=== PATIENT | male | born 1950 | race Caucasian/White ===

== ENCOUNTER 2025-04-14 11:14 | Outpatient (CLI) | payer MEDICARE, OTHER, SELFPAY | END 2025-04-14 11:15 | disposition home or self-care (01) | LOC: SPT 11:15 | PROVIDERS: PCP Family Medicine; Visit Provider Podiatrist Foot & Ankle Surgery | DX: Z46.89 Encounter for fitting and adjustment of other specified devices (principal); E08.621 Diabetes mellitus due to underlying condition with foot ulcer; L97.502 Non-pressure chronic ulcer of other part of unspecified foot with fat layer exposed | CPT/HCPCS: 97760; L4361 ==

== ENCOUNTER → 2025-04-28 09:31 | Outpatient (BNVA) | payer MEDICARE, OTHER, SELFPAY | PROVIDERS: PCP Family Medicine; Visit Provider Podiatrist Foot & Ankle Surgery | DX: E11.8 Type 2 diabetes mellitus with unspecified complications (principal); E11.621 Type 2 diabetes mellitus with foot ulcer; L97.512 Non-pressure chronic ulcer of other part of right foot with fat layer exposed; E11.40 Type 2 diabetes mellitus with diabetic neuropathy, unspecified; Z79.84 Long term (current) use of oral hypoglycemic drugs | CPT/HCPCS: 11042 ==

== ENCOUNTER → 2025-05-12 10:04 | Outpatient (BNVA) | payer MEDICARE, OTHER, SELFPAY | PROVIDERS: PCP Family Medicine; Visit Provider Podiatrist Foot & Ankle Surgery | DX: E11.8 Type 2 diabetes mellitus with unspecified complications (principal); E11.621 Type 2 diabetes mellitus with foot ulcer; L97.512 Non-pressure chronic ulcer of other part of right foot with fat layer exposed; E11.40 Type 2 diabetes mellitus with diabetic neuropathy, unspecified; Z79.84 Long term (current) use of oral hypoglycemic drugs | CPT/HCPCS: 99213 ==

== ENCOUNTER → 2025-06-02 09:24 | Outpatient (BNVA) | payer MEDICARE, OTHER, SELFPAY | PROVIDERS: PCP Family Medicine; Visit Provider Podiatrist Foot & Ankle Surgery | DX: E11.621 Type 2 diabetes mellitus with foot ulcer (principal); L97.512 Non-pressure chronic ulcer of other part of right foot with fat layer exposed; E11.40 Type 2 diabetes mellitus with diabetic neuropathy, unspecified; M21.621 Bunionette of right foot; Z79.84 Long term (current) use of oral hypoglycemic drugs | CPT/HCPCS: 99214 ==

== ENCOUNTER → 2025-06-16 08:08 | Outpatient (BNVA) | payer MEDICARE, OTHER, SELFPAY | PROVIDERS: PCP Family Medicine; Visit Provider Podiatrist Foot & Ankle Surgery | DX: E11.8 Type 2 diabetes mellitus with unspecified complications (principal); E11.621 Type 2 diabetes mellitus with foot ulcer; L97.512 Non-pressure chronic ulcer of other part of right foot with fat layer exposed; E11.40 Type 2 diabetes mellitus with diabetic neuropathy, unspecified; M21.621 Bunionette of right foot; Z79.84 Long term (current) use of oral hypoglycemic drugs | CPT/HCPCS: 99214 ==

== ENCOUNTER → 2025-07-08 09:06 | Outpatient (BNVA) | payer MEDICARE, OTHER, SELFPAY | PROVIDERS: PCP Family Medicine; Visit Provider Podiatrist Foot & Ankle Surgery | DX: E11.8 Type 2 diabetes mellitus with unspecified complications (principal); E11.621 Type 2 diabetes mellitus with foot ulcer; L97.512 Non-pressure chronic ulcer of other part of right foot with fat layer exposed; E11.40 Type 2 diabetes mellitus with diabetic neuropathy, unspecified; M21.621 Bunionette of right foot; Z79.84 Long term (current) use of oral hypoglycemic drugs | CPT/HCPCS: 99214 ==

== ENCOUNTER 2025-07-19 06:09 | Day surgery (SDC) | payer MEDICARE, OTHER, SELFPAY ==
[2025-07-19] VITALS (8 sets, daily range): BP systolic 137–179; BP diastolic 79–104; PULSE 72–78; RESP 15–18; TEMP 36.2–36.6; O2SAT 96–100; BMI 35.9
--- NOTE | 2025-07-19 06:38 | ECG_ITS ---
[facility]: 2025-07-19 Pat Name: Jeancarlos Berry Department: Room: Gender: Male Bankruptcy Law Specialist: : 1950 Requested By: Aj Martin Order Number: [id number] Miko MD: Cierra Gonzalez M.D. Measurements Intervals [place] Rate: 69 P: 28 VA: 208 QRS: -36 QRSD: 160 T: 5 QT: 424 QTc: 457 Interpretive Statements SINUS RHYTHM LEFT AXIS DEVIATION [QRS AXIS < -30] RIGHT BUNDLE BRANCH BLOCK [120+ ms QRS DURATION, UPRIGHT V1, 40+ ms S IN I/aVL/V4/V5/V6] No previous ECG available for comparison Electronically Signed On 07-20-2025 21:55:23 [employer]OCK CAR [employer] by Cierra Gonzalez M.D. [email or web address]
[2025-07-19 07:01] LABS: Hematocrit 47.0 % (37-53); Hemoglobin 15.80 g/dL (11.27-16.99); Mean Corpuscular HGB Conc 33.6 g/dL (30-55); Mean Corpuscular Hemoglobin 29.8 pg (27-33); Mean Corpuscular Volume 88.7 fl (82-101); Nucleated Red Blood Cells % 0 %; Platelet Count 156 10^3/cmm (157-399); Red Blood Count 5.30 10^6/uL (3.85-5.65); White Blood Count 5.87 10^3/uL (3.29-11.43)
[2025-07-19 07:21] LABS: Anion Gap 13.7 (5-19); Blood Urea Nitrogen 18 mg/dL (8-23); Calcium 9.5 mg/dL (8.5-10.5); Carbon Dioxide 28 mmol/L (22-29); Chloride 101 mmol/L (98-107); Glucose 210 mg/dL (65-115); Osmolality Calculated 294 mOsm/kg (285-295); Potassium 4.7 mmol/L (3.5-5.1); Sodium 138 mmol/L (136-145)
--- NOTE | 2025-07-19 07:59 | ANES.PREANE2 ---
Pre-Anesthetic Assessment Height/Weight: Height 6 ft Weight 265 lb Temp Pulse Resp BP Pulse Ox O2 Del Method 97.2 F L 77 17 179/104 100 Room Air 07/19/25 06:44 07/19/25 06:44 07/19/25 06:44 07/19/25 06:44 07/19/25 06:44 07/19/25 06:44 Preop Diagnosis: Right foot tailor's bunion Operation Date: 07/19/25 08:20 Proposed Procedures p RIGHT Tailors Bunionectomy(Right) - RYAN HernandezM Was Beta Duncan taken within 24 hours: Yes Was Clonidine taken within 24 hours: N/A Last intake: Intake Last Liquid Date 07/18/25 Last Liquid Time 18:30 Last Solid Date 07/18/25 Last Solid Time 18:30 Social No alcohol and No tobacco Exam alert, oriented x 3, clear to auscultation bilaterally and regular rate & rhythm Airway Submandibular: within normal limits Cervical ROM: within normal limits Mallampati: Class III Dentition: full Comments: Comments: Teeth mildly eroded on bottom, denies any loose teeth Anesthetic Plan ASA status: 3 Anesthesia: MAC Other: No prior issues with anesthesia NPO since yesterday evening History of hypertension on carvedilol and lisinopril?HCTZ. Preop BP 179/104 PHILIP, wears CPAP Labs performed today which were WNL other than borderline platelet of 156 EKG showing sinus rhythm with RBBB Plan for MAC anesthesia with local via surgeon Medications/Allergies Home Medications ?Medication ?Instructions ?Recorded ?Confirmed ?Last Taken ?Type cam boot #1 ea 04/14/25 07/08/25 Unknown Rx carvedilol 25 mg tablet 25 mg PO BID 04/14/25 07/15/25 07/15/25 History glimepiride 2 mg tablet 4 mg PO QAM 04/14/25 07/19/25 07/15/25 History lisinopril 20 1 tab PO DAILY 04/14/25 07/19/25 07/18/25 History mg-hydrochlorothiazide 12.5 mg tablet metformin 500 mg tablet 300 mg PO BID 04/14/25 07/19/25 07/15/25 History multivitamin 1 tab PO DAILY 04/14/25 07/19/25 07/18/25 History allopurinol 300 mg tablet 300 mg PO 1XD 04/28/25 07/19/25 07/18/25 History atorvastatin 10 mg tablet (Lipitor) 10 mg PO DAILY 06/02/25 07/19/25 07/18/25 History glimepiride 2 mg tablet 2 mg PO BEDTIME 07/15/25 07/19/25 07/15/25 History tramadol 50 mg tablet 50 mg PO Q6H PRN pain #12 tabs 07/19/25 Unknown Rx Allergies Allergy/AdvReac Type Severity Reaction Status Date / Time No Known Allergies Allergy Verified 07/19/25 06:30 Current Medications Generic Name Dose Route Start Last Admin Trade Name Freq PRN Reason Stop Dose Admin Sodium Chloride 1,000 mls @ 30 mls/hr 07/19/25 06:30 07/19/25 06:55 Sodium Chloride 0.9% IV 07/20/25 06:29 30 mls/hr .Q24H [place] Administration PFSH Anesthesia Social History Smoking and tobacco/nicotine status: never used tobacco/nicotine Data Anesthesia 07/19/25 06:50 07/19/25 06:50 Short CBC 07/19/25 Range/Units 06:50 WBC 5.87 (3.29-11.43) 10^3/uL Hgb 15.80 (11.27-16.99) g/dL Hct 47.0 (37-53) % MCV 88.7 (82-101) fl Plt Count 156 L (157-399) 10^3/cmm Neut % (Auto) 65.2 % Neut # (Auto) 3.82 (1.8-7.7) 10^3/uL BMP 07/19/25 06:50 Sodium 138 Potassium 4.7 Chloride 101 Carbon Dioxide 28 BUN 18 Creatinine 1.0 Glucose 210 H Calcium 9.5
--- NOTE | 2025-07-19 08:11 | W.PM.OPSUD ---
Surgery/Procedure H&P Update DATE OF PROCEDURE: July 19, 2025 DATE H&P PERFORMED: 07/08/25 H&P UPDATE INFORMATION: I have reviewed H&P completed within last 30 days, I have examined patient prior to procedure, No changes to prior documentation, H&P is in [facility] EMR on date indicated and Risks and benefits of the procedure reviewed PREOP DIAGNOSIS: Right foot tailor's bunion PLANNED PROCEDURE: Operation Date: 07/19/25 08:20 Proposed Procedures p RIGHT Tailors Bunionectomy(Right) - Williams Zapien DPM
[2025-07-19] MEDS: ceFAZolin 2,000 mg SDV 2000 MG IVP (08:18)
--- NOTE | 2025-07-19 08:48 | P.OP_ITS ---
Operative Report Date of procedure: July 19, 2025 Surgeon: Williams Zapien DPM Procedure: Date of procedure: 07/19/2025 Pre-op diagnosis: Right foot tailor's bunion Post-op diagnosis: Same Post-op findings: Right foot tailor's bunion Procedure done: Right foot tailor's bunionectomy CPT 49004 Implants: None Specimens removed: None Surgeon: Dr. 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 The patient has had the aforementioned chief complaint for some time. Conservative treatment measures have been attempted and the patient has opted for surgical intervention at this time. A lengthy discussion regarding the procedure, including risks and complications has been had with the patient and is noted in the recent clinic note. Written and verbal consent have been obtained. All patient questions have been answered to the patient?s satisfaction. No written or verbal guarantees have been given or implied. The patient has been NPO since midnight. The history has been reviewed and the history and physical is current. The signed consent was confirmed and placed in the patient chart. Patient imaging has been reviewed and is consistent with the diagnosis. Under mild sedation, the patient was brought into the operating room and placed on the table in the supine position. IV antibiotics were given by the anesthesia team as preoperative surgical prophylaxis. MAC sedation was then performed by the anesthesiateam. A local field block was performed using 0.5% Marcaine plain. After prep, an OpSite was placed over the plantar fifth metatarsal head wound and the following procedure was then performed. Attention was directed to the right foot where a percutaneous stab incision was made to the medial aspect of the fifth tarsal within the fourth intermetatarsal space. Blunt dissection was carried down to subcutaneous the superficial fascia to the level of the fifth metatarsal neck. Under fluoroscopic visualization osteotomy was made through the fifth metatarsal neck using a Bharti bur. The fifth metatarsal head was then translated in a superior and medial direction. The incision site was closed with 4-0 nylon before being dressed with Xeroform, 4 x 4 gauze, Kerlix, Juan. The patient tolerated the procedure and anesthesia well and without complication. The patient was transported from the operating room to the recovery room with vital signs stable and vascular status intact to all digits of the right foot. The patient was given both written and verbal instructions to remain weightbearing as tolerated in cam boot to the operative extremity, to keep dressings/splint clean, dry and intact and to take pain medication as directed. The patient will follow-up in the outpatient setting at their scheduled appointment. The patient was discharged with my personal number and was instructed to call if any questions or issues should arise. They were discharged home once anesthesia criteria was met.
--- NOTE | 2025-07-19 10:05 | ANE.PACU2 ---
Inpatient post-anesthesia follow up: Airway intact: Yes Vital signs: Temperature 97.6 F Pulse Rate 74 Respiratory Rate 17 Blood Pressure 155/89 Pulse Oximetry 100 Oxygen Delivery Me thod Room Air Oxygen Flow Rate 6 Fraction of Inspir ed Oxygen Hydration adequate: Yes Nausea and vomiting: No Pain level: 1 Mental status: Baseline
== END 2025-07-19 10:05 | disposition home or self-care (01) ==
PROVIDERS: Student in an Organized Health Care Education/Training Program; PCP Family Medicine; Visit Provider Podiatrist Foot & Ankle Surgery
PROC: 0QBP0ZZ Excision of Left Metatarsal, Open Approach (ICD-10-PCS; CPT 28110; principal; 2025-07-19 08:10)
DX: M21.621 Bunionette of right foot (principal); I10 Essential (primary) hypertension; G47.33 Obstructive sleep apnea (adult) (pediatric); Z99.89 Dependence on other enabling machines and devices; Z79.84 Long term (current) use of oral hypoglycemic drugs; E11.42 Type 2 diabetes mellitus with diabetic polyneuropathy
CPT/HCPCS: 28308; 36416; 76000; 80048; 82962; 85025; 93005; J0690; J2704; J3010; J7030; J9999

== ENCOUNTER → 2025-07-26 13:58 | Outpatient (BNVA) | payer MEDICARE, OTHER, SELFPAY | PROVIDERS: PCP Family Medicine; Visit Provider Podiatrist Foot & Ankle Surgery | DX: M21.621 Bunionette of right foot (principal); Z98.890 Other specified postprocedural states; E11.621 Type 2 diabetes mellitus with foot ulcer; L97.512 Non-pressure chronic ulcer of other part of right foot with fat layer exposed; E11.40 Type 2 diabetes mellitus with diabetic neuropathy, unspecified; Z79.84 Long term (current) use of oral hypoglycemic drugs | CPT/HCPCS: 73630; 99024 ==

== ENCOUNTER → 2025-08-02 13:57 | Outpatient (BNVA) | payer MEDICARE, OTHER, SELFPAY | PROVIDERS: PCP Family Medicine; Visit Provider Podiatrist Foot & Ankle Surgery | DX: M21.621 Bunionette of right foot (principal); E11.621 Type 2 diabetes mellitus with foot ulcer; L97.512 Non-pressure chronic ulcer of other part of right foot with fat layer exposed; E11.40 Type 2 diabetes mellitus with diabetic neuropathy, unspecified; Z79.84 Long term (current) use of oral hypoglycemic drugs | CPT/HCPCS: 73630; 99024 ==